=== PATIENT | male | born 1975 | race Caucasian/White ===

== ENCOUNTER 2017-09-06 07:57 | Day surgery (SDC) | payer OTHER ==
[~2017-09-06] VITALS: Ht 182.9 cm; Wt 71.6 kg
[~2017-09-06 07:57] MED LIST: BUPIVACAINE 0.25% ONE; EPINEPHRINE 1 MG/ML, 1ML ONE; LISI1TAB5 PO
[2017-09-06] MEDS ORDERED: LACTATED RINGERS 1,000 ML IV SCH (08:25)
[2017-09-06 08:29] VITALS: BP 151/106
[2017-09-06] MEDS ORDERED: ACETAMINOPHEN 500 MG TABLET PO ONE (08:30)
[2017-09-06] MEDS ORDERED: ONDANSETRON ODT 8 MG PO ONE (08:30)
[2017-09-06] MEDS ORDERED: GABAPENTIN 300 MG CAPSULE PO ONE (08:30)
[2017-09-06] MEDS ORDERED: FENTANYL PF 100 MCG/2ML ONE ×2 (08:49→10:10)
[2017-09-06] MEDS ORDERED: MIDAZOLAM 1 MG/ML, 2ML ONE (08:50)
[2017-09-06] MEDS ORDERED: CEFOTETAN PMX 2GM/50ML 50 ML ONE (08:52)
[2017-09-06] MEDS ORDERED: DEXAMETHASONE 4 MG/ML, 1ML ONE (08:52)
[2017-09-06] MEDS ORDERED: CEFAZOLIN 1,000 MG ONE (08:52)
[2017-09-06] MEDS ORDERED: ONDANSETRON 2MG/ML, 2ML ONE (08:52)
[2017-09-06] MEDS ORDERED: ROCURONIUM 10MG/ML,5ML ONE (08:52)
[2017-09-06] MEDS ORDERED: SUCCINYLCHOLINE 20 MG/ML, 10ML ONE (08:52)
[2017-09-06] MEDS ORDERED: PROPOFOL 10 MG/ML, 20ML ONE (08:52)
[2017-09-06] MEDS ORDERED: KETOROLAC 30 MG/1 ML ONE (08:52)
[2017-09-06] MEDS ORDERED: GLYCOPYRROLATE 0.2MG/1ML, 5ML ONE (08:52)
[2017-09-06] MEDS ORDERED: NEOSTIGMINE 1 MG/ML, 10ML ONE (08:52)
[2017-09-06] MEDS ORDERED: LIDOCAINE GEL 2%, 5ML ONE (09:11)
[2017-09-06] MEDS ORDERED: ONDANSETRON ODT 8 MG PO PRN (10:00)
[2017-09-06] MEDS ORDERED: HYDROmorphone 1 MG/ML, 1ML IV PRN (10:00)
[2017-09-06] MEDS ORDERED: ALBUTEROL/IPRATROPIUM 2.5MG/0.5MG, 3 ML NPPB PRN (10:00)
[2017-09-06] MEDS ORDERED: SCOPOLAMINE PATCH, 1.5MG PATCH.TD72 TD PRN (10:00)
[2017-09-06] MEDS ORDERED: EPHEDRINE 50 MG/ML, 1ML IM PRN (10:00)
[2017-09-06] MEDS ORDERED: hydrALAzine 20 MG/ML, 1ML IV PRN (10:00)
[2017-09-06] MEDS ORDERED: MEPERIDINE/PF 25MG/0.5ML IVPush PRN (10:00)
[2017-09-06] MEDS ORDERED: DIPHENHYDRAMINE 50 MG/ML, 1ML IVPush PRN (10:00)
[2017-09-06] MEDS ORDERED: PROMETHAZINE 25 MG SUPP PR PRN (10:00)
[2017-09-06] MEDS ORDERED: METOCLOPRAMIDE 5 MG/ML, 2ML IV PRN (10:00)
[2017-09-06] MEDS ORDERED: PROMETHAZINE 25 MG/ML, 1ML IV PRN (10:00)
[2017-09-06] MEDS ORDERED: MORPHINE SULFATE 4 MG/ML, 1ML IVPush PRN (10:00)
[2017-09-06] MEDS ORDERED: OXYcodone 5 MG/5 ML ORAL.SOL UDC PO PRN (10:00)
[2017-09-06] MEDS ORDERED: LABETALOL 5MG/ML, 20ML IV PRN (10:00)
[2017-09-06] MEDS ORDERED: DIAZEPAM 5 MG/ML, 2ML IVPush PRN (10:00)
[2017-09-06] MEDS ORDERED: MIDAZOLAM 1 MG/ML, 2ML IV PRN (10:00)
[2017-09-06] MEDS: FENTANYL PF 100 MCG/2ML IV PRN ×2 (10:12→10:32)
[2017-09-06] MEDS ORDERED: hydrALAzine 20 MG/ML, 1ML ONE (10:13)
[2017-09-06] MEDS ORDERED: OXYcodone 5 MG/5 ML ORAL.SOL UDC ONE (10:32)
[2017-09-06] MEDS ORDERED: MORPHINE SULFATE 4 MG/ML, 1ML ONE (10:33)
== END 2017-09-06 14:12 ==
LOC: OUT 07:57
PROVIDERS: ATTEND Surgery
DX: K81.1 Chronic cholecystitis (principal); I10 Essential (primary) hypertension; Z72.89 Other problems related to lifestyle
CPT/HCPCS: 47562; 88304; C1729; C1760; J0171; J0330; J0360; J0690; J1100; J1885; J2250; J2405; J2704; J2710; J3010; J3490; J7120; Q0162; S0074